=== PATIENT | female | born 1950 | race Caucasian/White ===

== ENCOUNTER 2017-07-18 10:19 | Outpatient (CLI) | payer MEDICARE ==
--- NOTE | 2017-07-18 12:16 | RAD ---
LUMBAR SPINE TWO VIEWS: HISTORY: Lumbar degenerative disease (M51.36). FINDINGS: There is posterior spinal fusion of L4-S1. Anterolisthesis of L4-L5 is present, approximately 4 mm. Adequate position of the disk spacers. IMPRESSION: Satisfactory postoperative appearance. No evidence of hardware complication. POS: TANNER
== END 2017-07-18 10:20 | disposition home or self-care (01) ==
LOC: TBSIIMAG 10:19
PROVIDERS: ATTEND Neurological Surgery
DX: M51.36 Other intervertebral disc degeneration, lumbar region (principal); Z98.890 Other specified postprocedural states
CPT/HCPCS: 72100

== ENCOUNTER 2017-08-29 16:03 | Outpatient (CLI) | payer MEDICARE ==
--- NOTE | 2017-08-29 16:40 | RAD ---
LUMBAR SPINE TWO VIEWS: 08/29/2017 HISTORY: Prior back surgery. Lower extremity burning when standing, right greater than left. COMPARISON: 07/18/2017 FINDINGS: Left-sided L4, L5, and S1 pedicle screws are present with a vertically oriented interlocking stacie, sta ble. Intervertebral disk device noted at L4-L5 and at L5-S1, stable as well. No evidence for hardwa re failure is seen. Lateral imaging demonstrates approximately 4 mm of anterolisthesis of L4 on L5, stable. No acute oss eous abnormality. There is mild retrolisthesis at L2-L3 with disk space narrowing and anterior osteophyte formation, st able. IMPRESSION: Stable two views of the lumbar spine, as detailed above. POS: TANNER
== END 2017-08-29 16:04 | disposition home or self-care (01) ==
LOC: TBSIIMAG 16:03
PROVIDERS: ATTEND Neurological Surgery
DX: M43.16 Spondylolisthesis, lumbar region (principal); M48.061 Spinal stenosis, lumbar region without neurogenic claudication; Z98.890 Other specified postprocedural states
CPT/HCPCS: 72100

== ENCOUNTER 2017-09-11 09:14 | Outpatient (CLI) | payer MEDICARE ==
--- NOTE | 2017-09-11 10:56 | CT ---
CT OF THE LUMBAR SPINE: Date: 09-06-17 Comparison: None. History: Radiculopathy of bilateral lower extremities with numbness. Technique: Serial axial CT imaging is obtained at 3 mm intervals through the lumbar spine without con trast. Coronal and sagittal reformatted imaging obtained. FINDINGS: Evaluation for central canal and/or neural foraminal stenosis is limited on routine CT. Cholecystectomy clips are noted. There is a round focus of gas in the region of the horizontal portio n of the duodenum proximally which may represent duodenal diverticulum or less likely an area of bili kaitlynn gas associated with prior intervention. No anterolisthesis or retrolisthesis noted. Left sided pedicle screw is present at L4, L5, and S1 with a vertically oriented interlocking stacie. In tervertebral disc devices are present at the L4-5 and L5-S1 level. There is subtle lucency surrounding the S1 pedicle screw on the left suggesting a degree of pedicle s crew loosening. T12-L1: No osseous cause of significant central canal or neural foraminal stenosis. L1-2: No osseous cause of significant central canal or neural foraminal stenosis. L2-3: Mild bilateral facet hypertrophy. Mild anterior osteophyte formation. No osseous cause of signi ficant central canal or neural foraminal stenosis. L3-4: Bilateral facet hypertrophy and hypertrophy of ligamentum flavum. No osseous cause of significa nt central canal or neural foraminal stenosis. L4-5: Probable mild disc bulge. The patient appears status post facetectomy on the left. There is fac et hypertrophy on the right. There is no osseous cause of significant central canal or neural foramin al stenosis. There is mild increased soft tissue density in the region of the neural foramen on the l eft, not well characterized on this examination. This could be the result of post-operative scar or a rtifact. L5-S1: The patient appears status post left facetectomy. There is a small focus of gas in the left pa racentral region anteriorly on axial image 69 and sagittal image 52. This may represent gas within a disc herniation resulting in a degree of left lateral recess stenosis/left neural foraminal stenosis. However, this could represent gas within the epidural space associated with a prior surgery. This di stinction is difficult to make on noncontrast enhanced imaging. There does appear to be a degree of l eft neural foraminal stenosis. There is osteophyte formation at the level of the right neural foramen with at least mild right neura l foraminal stenosis. There is no worrisome lytic or blastic bone lesion. There is bone graft material posteriorly at L4, L5 and S1 levels bilaterally. Bone graft material is primarily right sided. IMPRESSION: 1. Multilevel degenerative and post-operative change as described above. This includes left sided ped icle screws at L4, L5, and S1 with intervertebral disc devices at L4-5 and L5-S1 levels. There is inc reased density in the left neural foramina at L4-5 and L5-S1 as detailed above, not well characterize d on noncontrast enhanced imaging. This includes a focus of gas in the region of the neural foramen o n the left at L5-S1. Please see above discussion. Of note, there is subtle lucency surrounding the S1 pedicle screw on the left which may signify hardware loosening. POS: TANNER
== END 2017-09-11 09:15 | disposition home or self-care (01) ==
LOC: TBSIIMAG 09:14
PROVIDERS: ATTEND Neurological Surgery
DX: M47.26 Other spondylosis with radiculopathy, lumbar region (principal); M79.89 Other specified soft tissue disorders; Z98.1 Arthrodesis status
CPT/HCPCS: 72131

== ENCOUNTER 2017-10-04 09:11 | Day surgery (SDC) | payer MEDICARE ==
[2017-10-03 13:15] VITALS: BMI 32.2
[2017-10-04 10:34] VITALS: TEMP 97.4
[2017-10-04 10:35] VITALS: BP 132/73
--- NOTE | 2017-10-04 12:47 | CT ---
MYELOGRAM AND POST MYELOGRAPHIC CT IMAGES OF THE LUMBAR SPINE: 10/04/2017 HISTORY: Left leg radiculopathy. Previous lumbar spine fusion. RADIATION DOSIMETRY: Fluoroscopy 0.9 minutes. AK 1.7 mGy TECHNIQUE: Informed consent was obtained from the patient. The right L2-L3 area was prepped and draped in the u sual sterile manner. A 1% Lidocaine solution was used to anesthetize the overlying soft tissues. A 22 gauge spinal needle was placed into the subarachnoid space. A total of 14 mL of Isovue 200M was i ntroduced into the subarachnoid space. Spot and overhead images were obtained. FINDINGS: Images demonstrate right-sided pedicle screws fusing the L4, L5, and S1 levels. There is an area of radiolucency surrounding the left S1 screw, concerning for a possible area of loosening. The left L4 and L5 screws are in good position and alignment. T12-L1: Unremarkable. L1-L2: Unremarkable. L2-L3: There is a mild broad-based disk bulge and mild facet hypertrophy. The central canal and valente ral foramen are patent. L3-L4: There is mild facet hypertrophy. The central canal and neural foramen are patent. L4-L5: Fusion hardware is seen in the L4-L5 intervertebral disk space. There is a broad-based disk bulge. Bilateral facet and ligamentum flavum hypertrophy is seen. This results in moderate to sever e L4-L5 central and lateral recess stenosis. L5-S1: Intervertebral disk hardware is seen at the L5-S1 level. There is a mild broad-based disk bu lge. There is mild narrowing and compression of the left S1 nerve root in the lateral recess. This may be due to the broad-based disk bulge or surrounding scarring at the left L5-S1 epidural region. IMPRESSION: 1. Lucency surrounding the left S1 hardware screw. 2. Moderate to severe L4-L5 central spinal stenosis. 3. Left S1 nerve root compression due to epidural area of soft tissue density. This may represent a left epidural disk protrusion or surrounding scar. POS: TANNER
[2017-10-04] MEDS ORDERED: Iopamidol-M 200 41% 20 ML VIAL ONE (13:22)
== END 2017-10-04 11:35 | disposition home or self-care (01) ==
LOC: RAD 09:11
PROVIDERS: ATTEND Neurological Surgery
PROC: B02BY0Z Computerized Tomography (CT Scan) of Spinal Cord using Other Contrast, Unenhanced and Enhanced (ICD-10-PCS; principal; 2017-10-04)
DX: M48.061 Spinal stenosis, lumbar region without neurogenic claudication (principal); M54.16 Radiculopathy, lumbar region; I10 Essential (primary) hypertension; G89.29 Other chronic pain; K21.9 Gastro-esophageal reflux disease without esophagitis; Z88.8 Allergy status to other drugs, medicaments and biological substances
CPT/HCPCS: 62304; 72132

== ENCOUNTER 2019-02-04 07:30 | Inpatient (IN) | payer MEDICARE ==
[2019-02-01 10:58] VITALS: BMI 32.2
[2019-02-04 08:50] LABS: Hemoglobin 13.1 g/dL (12.0-16.0); Mean Corpuscular HGB CONC 34.1 g/dL (32.0-36.0); Mean Corpuscular Hemoglobin 30.4 pg (27.0-31.0); Mean Corpuscular Volume 89.1 fL (78.0-98.0); Platelet Count 278 thou/uL (130-400); RBC Distribution Width 12.1 % (11.5-14.5); White Blood Cell (WBC) Count 3.9 thou/uL (4.8-10.8)
[2019-02-04 09:01] LABS: Anion Gap 12 mmol/L (10-20); BUN (Urea Nitrogen) 13 mg/dL (9.8-20.1); Calc. Creatinine Clearance 117 mL/min (70-130); Calcium 9.8 mg/dL (7.8-10.44); Carbon Dioxide 26 mmol/L (23-31); Chloride 105 mmol/L (98-107); Estimated GFR-MDRD 82; Glucose 99 mg/dL (80-115); Potassium 4.3 mmol/L (3.5-5.1); Sodium 139 mmol/L (136-145)
[2019-02-04] MEDS ORDERED: Midazolam HCl 2 mg/2 ml Vial ONE (09:33)
[2019-02-04] MEDS ORDERED: Metoclopramide HCl 10 MG/2 ML VIAL ONE (10:23)
[2019-02-04] MEDS ORDERED: PROPOFOL 200 MG/20 ML VIAL ONE (10:23)
[2019-02-04] MEDS ORDERED: Rocuronium Bromide 10 MG/ML (10ML VIAL) ONE (10:23)
[2019-02-04] MEDS ORDERED: Dexamethasone 20 MG/5 ML VIAL ONE (10:23)
[2019-02-04] MEDS ORDERED: Ketorolac Tromethamine 30 MG/ML VIAL ONE (10:23)
[2019-02-04] MEDS ORDERED: PHENYLEPHRINE-NS 100 MCG/ML 10 ML SYRINGE ONE (10:23)
[2019-02-04] MEDS ORDERED: Ondansetron PF 4 MG/2 ML Vial ONE (10:23)
[2019-02-04] MEDS ORDERED: Lidocaine 1% PF 5 ML VIAL ONE (10:23)
[2019-02-04] MEDS ORDERED: Glycopyrrolate 0.2 MG/ML 5 ML SYRINGE ONE (10:23)
[2019-02-04] MEDS ORDERED: Sodium Chloride 0.9% 10 ML ONE (10:27)
[2019-02-04] MEDS ORDERED: Fentanyl 100 MCG/2 ML VIAL ONE ×4 (11:18→14:07)
--- NOTE | 2019-02-04 13:23 | OP ---
DATE OF PROCEDURE: 02/04/2019 SALESPERSON FURS: Alejandrina Alcaraz PA-C PROCEDURES PERFORMED: Removal of hardware L4 through S1; exploration of spinal fusion, L4 through S1; posterolateral arthrodesis; pedicle screw instrumentation L4 through S1; and BMP and cancellous bone chips. DESCRIPTION OF PROCEDURE: The patient was brought to the operating room and intubated. She was rolled in prone position on gel-filled chest rolls. An incision was reopened. The previous hardware was identified. The nuts and rods were removed and the left S1 screw was found to be loose as anticipated, this was removed without difficulty. An 8.5 mm diameter screw of 5 mm longer in length was then brought in the field and placed at left S1 without difficulty. The stacie was then secured between the screws, connected by nuts, which were final tightened. The wounds were then extensively irrigated. MAC hemostasis was secured. A combination of BMP and cancellous bone chips were laid over the right lamina posterolateral surfaces for the purpose of arthrodesis. Vancomycin powder was applied and the wound was then closed in anatomic layers. Job ID: [id number]
[2019-02-04] MEDS ORDERED: Promethazine 25 MG TAB PO PRN (15:52)
[2019-02-04] MEDS ORDERED: tiZANidine HCl 4 MG TAB PO PRN (15:52)
[2019-02-04] MEDS ORDERED: Promethazine HCl 12.5 MG SUPP PR PRN (15:52)
[2019-02-04] MEDS ORDERED: traMADol HCl 50 MG TAB PO PRN ×2 (15:52)
[2019-02-04] MEDS ORDERED: diphenhydrAMINE 50 MG/ML VIAL IVP PRN (15:52)
[2019-02-04] MEDS ORDERED: HYDROcodone/Acetaminophen 10/325 mg Tablet PO PRN (15:52)
[2019-02-04] MEDS ORDERED: Bisacodyl 10 MG SUPP PR PRN (15:52)
[2019-02-04] MEDS ORDERED: diphenhydrAMINE 25 MG CAP PO PRN (15:52)
[2019-02-04] MEDS ORDERED: Milk Of Magnesia 30 ML UDCUP PO PRN (15:52)
[2019-02-04] MEDS ORDERED: Promethazine HCl 25 MG/ML VIAL IM PRN (15:52)
[2019-02-04] MEDS ORDERED: Ondansetron PF 4 MG/2 ML Vial IM PRN (15:52)
[2019-02-04] MEDS ORDERED: Mag-Al 1200 mg/1200 mg/30 ML UDCUP PO PRN (15:52)
[2019-02-04] MEDS ORDERED: Morphine 4 MG/ML VIAL SLOW IVP PRN (16:20)
[2019-02-04] MEDS: Sodium Chloride 0.9% 1,000 ML IV SCH (16:21)
[2019-02-04] MEDS ORDERED: Morphine 2 MG/ML SYRINGE SLOW IVP PRN (16:30)
[2019-02-04] MEDS ORDERED: Cyclobenzaprine 10 MG TAB PO SCH (21:00)
[2019-02-04] MEDS: HYDROcodone/Acetaminophen 10/325 mg Tablet PO PRN (21:40)
[2019-02-04] MEDS: CEFAZOLIN 2 GM in Premix Bag 1 BAG IVPB SCH (21:40)
[2019-02-05] MEDS: CEFAZOLIN 2 GM in Premix Bag 1 BAG IVPB SCH (05:04)
[2019-02-05] MEDS: HYDROcodone/Acetaminophen 10/325 mg Tablet PO PRN ×2 (05:04→11:18)
[2019-02-05] MEDS: Sodium Chloride 0.9% 1,000 ML IV SCH (05:54)
--- NOTE | 2019-02-05 08:54 | DIS ---
DATE OF ADMISSION: 02/04/2019 DATE OF DISCHARGE: 02/05/2019 The patient is a 68-year-old female, who was recently found to have a loose left S1 screw, who underwent removal of hardware and revision of lumbar fusion from L4 through S1 with CMP. Following the surgery, she was transitioned to the Med/Surg floor, where her pain has been well controlled with p.o. medications, she is tolerating a regular diet, and she is voiding appropriately. She has been ambulating short distances in the hallway with her walker. Her incision has remained clean, dry, and intact without any issues. I will plan to dismiss the patient to home. I discussed home care and precautions. We will follow up with the patient in 2 weeks. The patient has been instructed to wear her LSO brace, which she has at home for all out-of-bed activities. Job ID: [id number]
[2019-02-05] MEDS ORDERED: Amlodipine 10 MG TAB PO SCH (09:00)
[2019-02-05] MEDS ORDERED: Losartan 25 MG TAB PO SCH (09:00)
[2019-02-05] MEDS ORDERED: Venlafaxine HCl XR 75 MG CAP PO SCH (09:00)
[2019-02-05] MEDS ORDERED: Acetaminophen/Codeine 30-300mg Tablet PO PRN (09:00)
[2019-02-05] MEDS ORDERED: Prevnar 13-Val Conj/PF 0.5 ML SYRINGE IM ONE (09:00)
[2019-02-05 11:30] VITALS: BP 137/80; TEMP 97.4
--- NOTE | 2019-02-06 18:44 | EKG ---
Test Reason : PREOP Blood Pressure : / mmHG Vent. Rate : 066 BPM Atrial Rate : 066 BPM P-R Int : 190 ms QRS Dur : 098 ms QT Int : 440 ms P-R-T Axes : 041 034 045 degrees QTc Int : 461 ms Normal sinus rhythm Normal ECG No previous ECGs available Confirmed by DR. Ayaka VALADEZ ([id number]) on 02/06/2019 6:44:24 PM Referred By: RUTHIE Confirmed By:DR. Ayaka VALADEZ
== END 2019-02-05 12:15 | disposition home or self-care (01) | DRG 460 ==
LOC: SURG A 07:30
PROVIDERS: ADMIT Neurological Surgery; ATTEND Neurological Surgery
PROC: 0SP304Z Removal of Internal Fixation Device from Lumbosacral Joint, Open Approach (ICD-10-PCS; principal; 2019-02-04)
PROC: 0SG00J1 Fusion of Lumbar Vertebral Joint with Synthetic Substitute, Posterior Approach, Posterior Column, Open Approach (ICD-10-PCS; 2019-02-04)
PROC: 0SG30J1 Fusion of Lumbosacral Joint with Synthetic Substitute, Posterior Approach, Posterior Column, Open Approach (ICD-10-PCS; 2019-02-04)
DX: T84.226A Displacement of internal fixation device of vertebrae, initial encounter (principal); M43.16 Spondylolisthesis, lumbar region; Z88.8 Allergy status to other drugs, medicaments and biological substances; I10 Essential (primary) hypertension; M48.062 Spinal stenosis, lumbar region with neurogenic claudication; Z90.49 Acquired absence of other specified parts of digestive tract; Z90.710 Acquired absence of both cervix and uterus; Z98.42 Cataract extraction status, left eye; Z98.41 Cataract extraction status, right eye
CPT/HCPCS: 76000; 80048; 85027; 90471; 90670; 93005; 93010; C1713; G0009; J0131; J0690; J1100; J1885; J2001; J2250; J2270; J2405; J2704; J2765; J3010; J3370; J3490

== ENCOUNTER 2019-02-27 15:34 | Outpatient (CLI) | payer MEDICARE ==
--- NOTE | 2019-02-27 17:34 | RAD ---
EXAM: LUMBAR SPINE TWO VIEWS: 02/27/19 HISTORY: Spondylolisthesis lumbar region. Follow-up postoperative. COMPARISON: 07/29/17. FINDINGS: Mild grade I anterolisthesis of L4 on L5. Pedicle screws stabilize L4, L5, and S1 with intradiscal pr osthesis. IMPRESSION: Recent postoperative changes as above. POS: TPC
== END 2019-02-27 15:35 | disposition home or self-care (01) ==
LOC: TBSIIMAG 15:34
PROVIDERS: ATTEND Neurological Surgery
DX: M43.16 Spondylolisthesis, lumbar region (principal); Z98.890 Other specified postprocedural states
CPT/HCPCS: 72100

== ENCOUNTER 2019-04-16 14:01 | Outpatient (CLI) | payer MEDICARE ==
--- NOTE | 2019-04-16 14:18 | RAD ---
2 views of the lumbar spine: 04/16/2019 COMPARISON: 02/27/2019 HISTORY: Evaluate lumbar spine following surgery FINDINGS: Right upper quadrant postoperative clips are present. Unilateral left-sided pedicle screws present at L4, L5, and S1 with associated intervertebral disc devices. Postoperative hardware demonstrates no adverse features and is unchanged when compared to the prior exam. Minimal residual a nterolisthesis of L4 on L5 measures 3 mm. IMPRESSION: Stable 2 view examination of the lumbar spine.
== END 2019-04-16 14:02 | disposition home or self-care (01) ==
LOC: TBSIIMAG 14:01
PROVIDERS: ATTEND Neurological Surgery
DX: M54.5 Low back pain (principal)
CPT/HCPCS: 72100

== ENCOUNTER 2019-10-17 12:52 | Outpatient (CLI) | payer MEDICARE ==
--- NOTE | 2019-10-17 13:14 | RAD ---
Exam: 4 views of lumbar spine HISTORY: Lumbar fusion. Follow-up. Right leg numbness. COMPARISON: 04/16/2019 FINDINGS: Redemonstration of unilateral left-sided transpedicular screw at L4, L5 and S1. No perihard riggins lucency. L4-L5 and L5-S1 disc prosthesis redemonstrated. 5 lumbar type vertebra. Vertebral body heights are maintained. No fracture. Spondylolisthesis: 3.3 mm of anterolisthesis of L4 for upon L5 the neutral position; 3.3 mm of jose listhesis upon flexion; 2.8 mm of anterolisthesis upon extension. The overall degree of spondylolisthesis is similar to the previous exam. IMPRESSION: Stable lumbar fusion from L4 4 through S1.
== END 2019-10-17 12:53 | disposition home or self-care (01) ==
LOC: TBSIIMAG 12:52
PROVIDERS: ATTEND Physician Assistant
DX: M51.36 Other intervertebral disc degeneration, lumbar region (principal); Z98.1 Arthrodesis status
CPT/HCPCS: 72120

== ENCOUNTER 2020-05-04 07:14 | Day surgery (SDC) | payer MEDICARE ==
[2020-05-01 13:35] VITALS: BMI 33.4
[2020-05-04 07:55] VITALS: BP 141/86; TEMP 98
--- NOTE | 2020-05-04 08:47 | RAD ---
Exam: Lumbar myelogram HISTORY: Lumbar radiculopathy. COMPARISON: 10/04/2017. EXPOSURE: 0.5 minutes, 95.2 milligray. FINDINGS: Two-view rental representative radiograph of lumbar spine demonstrates five lumbar type vertebra. Unilateral left-katey ed transpedicular screw at L4, L5 and S1. There is perihardware lucency involving the S1 screw. Disc prosthesis at L4-L5 and L5-S1. Preservation of vertebral body height. No fractures. No evidence of spondylolysis. There does appear to be 2.4 mm of anterolisthesis of L4 upon L5. Successful lumbar puncture. A total of 10 mL of Isovue-M 200 contrast was administered into the thecal sac at th e L2-L3 disc space. TECHNIQUE: Consent obtained to perform a lumbar puncture for lumbar myelogram. Patient's back was danny luated. The L2-L3 level was deemed appropriate. Skin was prepped and draped in a sterile fashion. 1% lidocaine, buffered with sodium bicarbonate was used for local anesthesia. Under fluoroscopic guid ance, 22-gauge spinal needle was advanced into the CSF space. There was prompt flow of clear CSF into the hub of the needle. Via a short tubing catheter, total of 10 mL of Isovue-M 200 contrast was administered intrathecally. Patient tolerated the procedure well. No immediate or post procedure complications. IMPRESSION: Successful lumbar myelogram IMPRESSION: Successful lumbar puncture for lumbar myelogram. Transcribed Date/Time: 05/04/2020 9:57 AM
--- NOTE | 2020-05-04 11:40 | CT ---
Exam: Post myelogram lumbar spine CT HISTORY: Lumbar radiculopathy. COMPARISON: 10/04/2017. FINDINGS: Appropriate attenuation of the visualized paraspinal muscles and solid organs. Presacral fat is preserved. There are five lumbar type vertebra. Lumbar spine vertebral body height is maintained. No fracture. U nilateral left-sided transpedicular screw at L4, L5 and S1. There is perihardware lucency involving the left S1 screw. Conus medullaris terminates at the mid L1 level. T11-T12: Broad-based disc bulge. Mild central canal stenosis. T12-L1: No posterior disc abnormalities. No significant central canal stenosis. Patent bilateral neur al foramina. L1-L2: No posterior disc abnormality. No significant central canal stenosis. Patent bilateral neural foramina. L2-L3: Broad-based disc bulge, ligamentum flavum thickening and facet hypertrophy result in mild cent ral canal stenosis. Encroachment upon bilateral subarticular zones without significant obscuration of either traversing L3 nerve root. Mild bilateral neural foraminal narrowing. 1.6 mm of retrolisthes is of L2 upon L3. L3-L4: Broad-based disc bulge abuts the thecal sac. There is mild ligamentum flavum thickening and fa cet at 3. No significant central canal stenosis. Mild bilateral neural foraminal narrowing. L4-L5: Disc prosthesis. Postsurgical changes in the posterior elements. There does appear to be ventr al epidural abnormal soft tissue attenuation as well as posterior element hypertrophy that results in moderate central canal stenosis. Mild to moderate bilateral neural foraminal narrowing. 2.1 mm of anterolisthesis of L4 upon L5. L5-S1: Disc prosthesis. Narrowing of the left subarticular zone secondary to osteophyte. Contact upon the traversing left S1 nerve root without significant obscuration. Mild central canal stenosis. Moderate to severe bilateral neural foraminal narrowing. Visualized sacrum and bony pelvis are intact. IMPRESSION: 1. Lumbar fusion changes as described above. 2. Spondylolisthesis as detailed above. 3. Moderate central canal stenosis at L4-L5 due to abnormal soft tissue attenuation of the ventral ep idural space as well as posterior element hypertrophy. Moderate central canal stenosis. Mild to moderate bilateral neural foraminal narrowing. Transcribed Date/Time: 05/04/2020 12:01 PM
== END 2020-05-04 09:30 | disposition home or self-care (01) ==
LOC: RAD 07:14
PROVIDERS: ATTEND Neurological Surgery
PROC: B02B1ZZ Computerized Tomography (CT Scan) of Spinal Cord using Low Osmolar Contrast (ICD-10-PCS; principal; 2020-05-04)
DX: M51.16 Intervertebral disc disorders with radiculopathy, lumbar region (principal); M43.16 Spondylolisthesis, lumbar region; M48.061 Spinal stenosis, lumbar region without neurogenic claudication; M48.04 Spinal stenosis, thoracic region; I10 Essential (primary) hypertension; F41.9 Anxiety disorder, unspecified; F32.9 Major depressive disorder, single episode, unspecified; K21.9 Gastro-esophageal reflux disease without esophagitis; Z79.899 Other long term (current) drug therapy; Z88.8 Allergy status to other drugs, medicaments and biological substances
CPT/HCPCS: 62304; 72132; 90471; 90732; G0009

== ENCOUNTER 2022-01-12 08:51 | Day surgery (SDC) | payer MEDICARE ==
[2022-01-11 10:15] VITALS: BMI 34.3
[2022-01-12] MEDS ORDERED: Iopamidol-M 200 41% 20 ML VIAL ONE (10:39)
[2022-01-12 12:29] VITALS: TEMP 97.6
[2022-01-12 12:31] VITALS: BP 138/74
== END 2022-01-12 12:00 | disposition home or self-care (01) ==
LOC: RAD 08:51
PROVIDERS: ATTEND Nurse Practitioner Pediatrics
PROC: B01B1ZZ Fluoroscopy of Spinal Cord using Low Osmolar Contrast (ICD-10-PCS; principal; 2022-01-12)
DX: M51.16 Intervertebral disc disorders with radiculopathy, lumbar region (principal); M43.16 Spondylolisthesis, lumbar region; M48.062 Spinal stenosis, lumbar region with neurogenic claudication; M48.07 Spinal stenosis, lumbosacral region; M96.1 Postlaminectomy syndrome, not elsewhere classified; M46.1 Sacroiliitis, not elsewhere classified; I10 Essential (primary) hypertension; K21.9 Gastro-esophageal reflux disease without esophagitis; Z79.01 Long term (current) use of anticoagulants; Z79.899 Other long term (current) drug therapy; Z88.8 Allergy status to other drugs, medicaments and biological substances; Z98.1 Arthrodesis status
CPT/HCPCS: 62304; 72132; Q9966

== ENCOUNTER 2022-04-14 09:02 | Outpatient (CLI) | payer MEDICARE | END 2022-04-14 09:03 | disposition home or self-care (01) | LOC: MRI 09:02 | PROVIDERS: ATTEND Specialist | DX: M48.062 Spinal stenosis, lumbar region with neurogenic claudication (principal); M47.816 Spondylosis without myelopathy or radiculopathy, lumbar region | CPT/HCPCS: 72148 ==